=== PATIENT | female | born 2005 | race Caucasian/White ===

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

== ENCOUNTER 2024-05-11 18:25 | Emergency (ER) | payer BC, SELFPAY ==
[2024-05-11 18:41] VITALS: BP 129/69; PULSE 73; RESP 17; TEMP 37.6; O2SAT 98; BMI 20.2
--- NOTE | 2024-05-11 18:43 | ED_ITS ---
HPI - Ear Problem General Time Seen by Provider: 18:43 Date Seen: 05/11/24 Chief complaint: Ear/Nose/Throat Problem Stated complaint: R ear infection Time Seen by Provider: 05/11/24 18:31 Source: patient Mode of arrival: ambulatory Limitations: no limitations History of Present Illness HPI Narrative: This 18-year-old female is coming in accompanied by her mom with concern of possible right ear infection. She started with upper respiratory symptoms and cough on Monday, tested positive for COVID on Monday. She has a long-term history of ear infections, they do have an otoscope at home. Yesterday she started noting decreased hearing in her right ear, muffled sounds and this continued today. She had her mom look in her ear and her mom thought it was maybe a little red. She has no pain whatsoever in the ear. She has not been on any antibiotics recently, amoxicillin has been adequate while tolerated in the past. They were concerned as she does go to college at [employer] [facility] [employer], is leaving in 2 weeks for scuba diving trip for her biology class. Related Data Previous Rx's ?Medication ?Instructions ?Recorded amoxicillin 875 mg tablet 875 mg PO BID #14 tabs 05/11/24 Allergies Allergy/AdvReac Type Severity Reaction Status Date / Time No Known Drug Allergies Allergy Verified 05/15/22 10:50 Review of Systems Narrative: As per HPI. PFSH PFSH Social History Smoking Status: Never smoker Do you use any of these nicotine containing products: None Second hand tobacco smoke exposure: No How often do you have a drink containing alcohol: never How often do you have six or more drinks on one occasion: Never AUDIT-C Alcohol total score: 0 Non-prescribed substance use: denies use service: No Exam Const: Vital Signs, click to edit/add: Vital Signs - 24 hr 05/11/24 18:41 Temperature 99.6 F Pulse Rate [Pulse Oximeter] 73 Respiratory Rate 17 Blood Pressure [Le ft Upper Arm] 129/69 Pulse Oximetry 98 Oxygen Delivery Me thod Room Air This 18-year-old female is alert, interactive, no apparent distress. Sclera clear, conjugate gaze. Both of her tympanic membranes have good light reflects, her right however seems to have more fluid when compared to the left. There is a little bit more pinkish discoloration but there is still good translucency and a good light reflects, very similar to her left. There is no significant erythema, fluid is clear behind the tympanic membrane. Neck is supple, no adenopathy. Lungs clear, good air entry, no wheezing crackles. CV regular rate and rhythm no murmur. Documenting provider has reviewed patient's vital signs: yes Course Course ED Course: Discussed with them that she definitely has fluid on her here but no evidence of infection at this time. I will send them with a prescription to have on hand and is to be started if there is pain. We discussed that antibiotics are not going to make the fluid resolve. Discussed [id number] remedies that may help in decreasing some of the sinus an eustachian tube swelling to better aerate her ear. I cannot guarantee that she will be ready to scuba dive in 2 weeks but she should tried [id number]-darfnib medicines as we discussed to give her the best chance. Vital Signs Vital signs: Initial Vital Signs Temperature 99.6 F 05/11/24 18:41 Temperature Source Temporal Artery Scan 05/11/24 18:41 Pulse Rate 73 05/11/24 18:41 Respiratory Rate 17 05/11/24 18:41 Blood Pressure 129/69 05/11/24 18:41 Blood Pressure Mean 89 05/11/24 18:41 Pulse Oximetry 98 05/11/24 18:41 Oxygen Delivery Method Room Air 05/11/24 18:41 Vital Signs Temperature 99.6 F 05/11/24 18:41 Pulse Rate 73 05/11/24 18:41 Respiratory Rate 17 05/11/24 18:41 Blood Pressure 129/69 05/11/24 18:41 Pulse Oximetry 98 05/11/24 18:41 Oxygen Delivery Method Room Air 05/11/24 18:41 Temperature 99.6 F 05/11/24 18:41 Pulse Rate 73 05/11/24 18:41 Respiratory Rate 17 05/11/24 18:41 Blood Pressure 129/69 05/11/24 18:41 Pulse Oximetry 98 05/11/24 18:41 Oxygen Delivery Method Room Air 05/11/24 18:41 Discharge Plan Discharge Clinical Impression: COVID-19, Acute serous otitis media, right ear Patient Disposition: Home, Self-Care Condition: Stable Instructions: Ear Infection (ED), Fluid In The Ear (Serous Otitis Media) (ED), COVID-19 (Coronavirus Disease 2019) (ED) Additional Instructions: Do recommend getting a nasal steroid like Nasacort or Flonase (generic fine) to use to help decrease swelling in the sinuses and along the eustachian tube. Can use [id number]-[id number] decongestants like Sudafed which you suggested. Start the amoxicillin if you develop right ear pain. There is certainly fluid on this right ear but does not look infected at this time. Would anticipate that you would have ear pain if you started to develop infection. Antibiotics do not make the fluid go way and her only to be used if there is pain which would indicate infection. You may need to take these medicines with you on your trip. I cannot guarantee that the fluid will be resolved by the time you plan to scuba dive. If there are any concerns in the interim, please seek re- evaluation. If you do not need the antibiotic and symptoms are improving, I would still plan on taking it with you on your trip in case you do need it later. Activity Level: Activity as Tolerated Prescriptions: New amoxicillin 875 mg tablet 875 mg PO BID Qty: 14 0RF Follow Up/Referrals: Yg Barnes MD [Primary Care Provider] - Stand Alone Forms: Mail'Inside Info Instructions
== END 2024-05-11 19:05 | disposition home or self-care (01) ==
LOC: ED 19:04
PROVIDERS: Emergency Provider Family Medicine; PCP Family Medicine
DX: U07.1 COVID-19 (principal); H65.91 Unspecified nonsuppurative otitis media, right ear
CPT/HCPCS: 99283